=== PATIENT | female | born 1990 | race Caucasian/White ===

== ENCOUNTER 2024-11-16 21:43 | Emergency (ER) | payer SELFPAY ==
[~2024-11-16] VITALS: Ht 170.2 cm; Wt 83.7 kg
[2024-11-16 21:58] VITALS: TEMP 38.2; O2SAT 99
[2024-11-16] MEDS: SODIUM CHLORIDE 0.9% (SEPSIS BOLUS) IV ONE (22:30)
[2024-11-16 23:09] VITALS: TEMP 103
[2024-11-16] MEDS: ACETAMINOPHEN 325MG TABLET PO ONE (23:09)
[2024-11-16 23:17] LABS: BASOPHILS % 0.2 % (0.0-2.0); DIFFERENTIAL COMMENT 0; EOSINOPHILS % 0.7 % (0.0-5.0); HEMATOCRIT. 27.7 % (36.0-48.0); LYMPHOCYTES % 8.2 % (20.0-50.0); MEAN CORPUSCULAR HEMOGLOBIN 23.9 pg (28.0-32.0); MEAN CORPUSCULAR HGB CONC 32.3 g/dL (31.0-37.0); MEAN CORPUSCULAR VOLUME 74.2 fL (81.0-99.0); MEAN PLATELET VOLUME 6.9 fl (7.4-10.4); MONOCYTES % 6.3 % (2.0-8.0); NEUTROPHILS % 84.6 % (40.0-76.0); PLATELET 173 x1000/uL (130-400); RED BLOOD CELL COUNT 3.74 mill/uL (4.2-5.4); RED CELL DISTRIBUTION WIDTH 16.5 % (11.6-14.6); WHITE BLOOD COUNT 6.1 x1000/uL (4.5-11.0)
[2024-11-16 23:26] LABS: CARBON DIOXIDE 22 mEq/L (21-32); CHLORIDE 102 mEq/L (98-107); POTASSIUM 3.3 mEq/L (3.5-5.1); PROTHROMBIN TIME 10.7 sec (9.6-11.0); SODIUM 134 mEq/L (136-145)
[2024-11-16 23:27] LABS: CALCIUM 8.9 mg/dL (8.7-10.4)
[2024-11-16 23:32] LABS: GLUCOSE 119 mg/dL (70-105); UREA NITROGEN BLOOD 9 mg/dL (9-23)
[2024-11-16 23:33] LABS: ALANINE AMINOTRANSFERASE 63 IU/L (10-49); ALBUMIN 3.9 g/dL (3.2-4.8); ASPARTATE AMINOTRANSFERASE 108 IU/L (<34)
[2024-11-16 23:34] LABS: BILIRUBIN DIRECT 0.1 mg/dL (<=3.0); BILIRUBIN TOTAL 0.4 mg/dL (0.1-1.0); PROTEIN TOTAL 7.4 g/dL (6.0-8.3)
[2024-11-16] MEDS: MORPHINE SULFATE 4 MG/ML INJ (FOR IV/IM USE) IV ONE (23:49)
[2024-11-16] MEDS: ONDANSETRON HCL 4MG/2ML INJ IV ONE (23:55)
[2024-11-16] MEDS: DIPHENHYDRAMINE 50MG/ML VIAL IV ONE (23:55)
[2024-11-17] MEDS: METRONIDAZOLE 500 MG PREMIX 100 ML IV ONE (00:01)
[2024-11-17 00:04] VITALS: BP 109/72; PULSE 96; RESP 19; O2SAT 99
[2024-11-17] MEDS: LEVOFLOXACIN 750MG PREMIX 150 ML IV ONE (00:15)
[2024-11-17 00:31] LABS: TROPONIN I HIGH SENSITIVITY < 4 ng/L (3.0-34)
[2024-11-17 00:36] LABS: LACTIC ACID 2.5 mmol/L (0.4-2.0)
[2024-11-17 00:42] LABS: HCG SCREEN NEGATIVE
== END 2024-11-17 00:34 | disposition left against medical advice (07) ==
LOC: ER 21:43
DX: R00.0 Tachycardia, unspecified (principal); R11.2 Nausea with vomiting, unspecified; Z90.710 Acquired absence of both cervix and uterus; Z88.5 Allergy status to narcotic agent; Z85.3 Personal history of malignant neoplasm of breast; Z88.2 Allergy status to sulfonamides; Z88.1 Allergy status to other antibiotic agents; Z88.0 Allergy status to penicillin
CPT/HCPCS: 99285; 96374; 96375; 71045; 96361; 80076; 80048; 84703; 83605; 83690; 85025; 85610; 87040; 84484; 36415; 84145; J1200; J3490; J2405; J2270; J7030; J1956